=== PATIENT | male | born 1985 | race African-American/Black ===

== ENCOUNTER 2021-09-24 16:12 | Inpatient (IN) | payer MEDICARE, OTHER ==
[~2021-09-24] VITALS: Ht 175.3 cm; Wt 66.3 kg
[2021-09-24 16:51] LABS: BASOPHIL 0.6 % (0-2); HCT 47.6 % (42.0-52.0); LYMPHOCYTE 13.1 % (15-48); MCH 33.1 pg (25.0-31.0); MCHC 33.6 g/dL (32.0-36.0); MCV 98.6 fL (78.0-100.0); MONOCYTE 9.1 % (0-12); MPV 9.3 fL (6.0-9.5); NEUTROPHIL 75.8 % (41-80); NRBC 0; PLT 435 K/uL (150-400); RBC 4.83 M/uL (4.70-6.00); RDW 11.2 % (11.5-14.0)
[2021-09-24 16:52] LABS: BILIRUBIN 2+ mg/dL (NEGATIVE); BLOOD TRACE-INTACT Ery/uL (NEGATIVE); CLARITY CLEAR (CLEAR); COLOR YELLOW (YELLOW); GLUCOSE (U) NORMAL (NORMAL); LEUKOCYTES NEGATIVE Leu/uL (NEGATIVE); NITRITE NEGATIVE (NEGATIVE); PROTEIN 3+ mg/dL (NEGATIVE); SPECIFIC GRAVITY >=1.030 (1.001-1.030); pH 5.5 (5.0-9.0)
[2021-09-24 16:57] LABS: AMPHETAMINES NEGATIVE (NEGATIVE); BARBITURATES NEGATIVE (NEGATIVE); ECSTASY (MDMA) NEGATIVE (NEGATIVE); MARIJUANA (THC) POSITIVE (NEGATIVE); METHADONE NEGATIVE (NEGATIVE); OPIATES NEGATIVE (NEGATIVE); OXYCODONE NEGATIVE (NEGATIVE)
[2021-09-24 17:04] LABS: BACTERIA 1+; URINARY WBC RARE
[2021-09-24 17:05] LABS: MUCOUS TRACE
[2021-09-24 17:06] LABS: ALBUMIN 4.2 g/dL (3.4-5.0); BILIRUBIN - TOTAL 0.6 mg/dL (0.2-1.0); BUN/CREAT RATIO (CALC) 12.8 RATIO; CREATININE 0.86 mg/dL (0.67-1.17); GLOBULIN (CALCULATION) 5.3 g/dL; POTASSIUM 3.8 mmol/L (3.5-5.1); TOTAL PROTEIN 9.5 g/dL (6.4-8.2)
[2021-09-25 06:22] LABS: BASOPHIL 0.4 % (0-2); EOSINOPHIL 1.2 % (0-5); HCT 38.2 % (42.0-52.0); HGB 12.4 g/dl (13.2-18.0); LYMPHOCYTE 10.5 % (15-48); MCH 32.4 pg (25.0-31.0); MCHC 32.5 g/dL (32.0-36.0); MCV 99.7 fL (78.0-100.0); MONOCYTE 8.7 % (0-12); MPV 9.7 fL (6.0-9.5); NEUTROPHIL 78.8 % (41-80); NRBC 0; PLT 314 K/uL (150-400); RBC 3.83 M/uL (4.70-6.00); RDW 11.2 % (11.5-14.0); WBC 7.7 K/uL (4.0-10.5)
[2021-09-26 05:57] LABS: BASOPHIL 0.9 % (0-2); EOSINOPHIL 2.3 % (0-5); HCT 40.2 % (42.0-52.0); LYMPHOCYTE 19.3 % (15-48); MCH 32.3 pg (25.0-31.0); MCHC 32.3 g/dL (32.0-36.0); MCV 99.8 fL (78.0-100.0); MONOCYTE 9.3 % (0-12); MPV 9.4 fL (6.0-9.5); NRBC 0; PLT 263 K/uL (150-400); RBC 4.03 M/uL (4.70-6.00); WBC 4.3 K/uL (4.0-10.5)
[2021-09-26 06:26] LABS: BILIRUBIN - TOTAL 0.6 mg/dL (0.2-1.0); BUN/CREAT RATIO (CALC) 4.2 RATIO; C-REACTIVE PROTEIN 16.2 mg/dL (<=0.90); CREATININE 0.71 mg/dL (0.67-1.17); GLOBULIN (CALCULATION) 3.5 g/dL; MAGNESIUM 1.8 mg/dL (1.8-2.4); PHOSPHORUS 3.4 mg/dL (2.6-4.7); POTASSIUM 3.5 mmol/L (3.5-5.1)
[2021-09-26 06:35] LABS: TOTAL PROTEIN 6.5 g/dL (6.4-8.2)
[2021-09-27 07:43] LABS: BASOPHIL 0.5 % (0-2); EOSINOPHIL 2.7 % (0-5); HCT 33.5 % (42.0-52.0); HGB 11.1 g/dl (13.2-18.0); LYMPHOCYTE 24.3 % (15-48); MCH 32.8 pg (25.0-31.0); MCHC 33.1 g/dL (32.0-36.0); MCV 99.1 fL (78.0-100.0); MONOCYTE 15.8 % (0-12); MPV 9.3 fL (6.0-9.5); NEUTROPHIL 56.7 % (41-80); NRBC 0; PLT 253 K/uL (150-400); RBC 3.38 M/uL (4.70-6.00); RDW 11.1 % (11.5-14.0); WBC 3.7 K/uL (4.0-10.5)
[2021-09-27 08:42] LABS: BUN/CREAT RATIO (CALC) 6.1 RATIO; CREATININE 0.66 mg/dL (0.67-1.17); MAGNESIUM 1.9 mg/dL (1.8-2.4); POTASSIUM 3.5 mmol/L (3.5-5.1)
[2021-09-28 01:06] LABS: CHLAMYDIA TRACHOMATIS, NAA Negative (Negative); NEISSERIA GONORRHOEAE, NAA Negative (Negative)
[2021-09-28] MEDS ORDERED: AMOX TR-K CLV1 EAC4 PO (12:49)
== END 2021-09-28 13:00 | disposition home or self-care (01) | DRG 391 ==
LOC: FER 16:12 → FTCU 19:39 → FICU 09-26 15:10 → FTCU 09-27 08:23
PROVIDERS: Internal Medicine; Nurse Practitioner Family; ADMIT Internal Medicine
DX: K57.20 Diverticulitis of large intestine with perforation and abscess without bleeding (principal); E43 Unspecified severe protein-calorie malnutrition; F10.139 Alcohol abuse with withdrawal, unspecified; Z68.20 Body mass index [BMI] 20.0-20.9, adult; Z20.822 Contact with and (suspected) exposure to COVID-19; F17.210 Nicotine dependence, cigarettes, uncomplicated; N30.90 Cystitis, unspecified without hematuria; R44.1 Visual hallucinations
CPT/HCPCS: 36415; 72193; 80048; 80053; 80305; 81001; 83605; 83735; 84100; 84145; 84443; 85025; 86140; 87088; 87491; 87591; J0360; J1170; J2405; J2543; J2560; J3360; J7030; J7050; Q9967; U0002